=== PATIENT | male | born 1995 | race Caucasian/White ===

== ENCOUNTER 2017-05-20 18:12 | Emergency (ER) | payer OTHER ==
[2017-05-20 18:12] VITALS: BP 132/66
--- NOTE | 2017-05-20 18:39 | PHYS DOC ---
Past History Past Medical History: Other Past Surgical History: Appendectomy Alcohol Use: None Drug Use: None Adult General Chief Complaint Chief Complaint: SHOULDER INJURY HPI HPI Patient is a 22 year old M who presents with numbness and tingling to the left arm after throwing heavy bags of material at work. 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 Patient states the numbness and tingling is decreasing since stopping the repetitive motion. Patient denies any previous trauma to the left shoulder. Patient denies any weakness to the hand. Patient states that when he raises his arm appears of popping in his shoulder. Patient denies any neck pain. Patient denies any chest pain or shortness of breath. Patient has no cardiac history. Patient has no other symptoms. Review of Systems Review of Systems GEN: Denies fevers, chills, sweats HEENT: Denies blurred vision, sore throat CV: Denies chest pain RESP: Denies shortness of air, cough GI: Denies n/v/d NEURO: Denies confusion, dizziness MSK: Left shoulder pain with numbness and tingling down the left arm Allergies Allergies Allergies Coded Allergies Type Severity Reaction Last Updated Verified No Known Drug Allergies 07/11/14 No Physical Exam Physical Exam GEN.: No apparent distress. Alert and oriented. HEENT: Head is normocephalic, atraumatic NECK: Supple, with axial compression of the neck and the head turned to the left does not reproduce the numbness and tingling down the left arm LUNGS: CTAB. HEART: RRR, S1, S2 present. Peripheral pulses intact ABDOMEN: Soft, nontender. Positive bowel sounds. EXTREMITIES: Without any cyanosis. Crepitus in the left shoulder with range of motion, decreased sensation to the left upper extremity just to the elbow which patient states is improving, +2 radial pulse and capillary refill less than 2 seconds on the left NEUROLOGIC: Normal speech, normal tone PSYCHIATRIC: Normal affect, normal mood. SKIN: No ulcerations EKG EKG [] Radiology/Procedures Radiology/Procedures X-ray left shoulder no obvious fracture [] Course & Med Decision Making Course & Med Decision Making Pertinent Labs and Imaging studies reviewed. (See chart for details) ED course: Patient was seen and examined in the emergency room upon arrival x-ray of the left shoulder was ordered 1846: Explained x-ray results with the patient and plan to discharge him home with Jena MDM: After reviewing the chart, CC/HPI/PMH, physical exam, [radiological results], I do not believe the patient sustained a significant traumatic injury to the left shoulder warranting further workup and/or admission at this time. I believe the patient has some vertical apathy secondary to overuse of the left shoulder at work. Patient is stable for discharge. Patient states that symptoms and the paresthesias of the left upper extremity are getting better. Additional verbal discharge instructions were provided to the patient and that if symptoms get worse or any new symptoms arise that are worrisome to the patient he is to return to the emergency room immediately [] Dragon Disclaimer Dragon Disclaimer This chart was dictated in whole or in part using Voice Recognition software in a busy, high-work load, and often noisy Emergency Department environment. It may contain unintended and wholly unrecognized errors or omissions. Departure Departure: Impression: Primary Impression: Left shoulder pain Additional Impression: Radiculopathy affecting upper extremity Condition: IMPROVED Referrals: RIVER CHRISTENSEN MD (PCP) Patient Instructions: Shoulder Pain, [id number] Additional Instructions: Please follow up with her family doctor next one to 2 days Scripts Ibuprofen (IBUPROFEN) 800 Mg Tablet 1 TAB PO TID, #30 TAB Prov: MIRZA CAUSEY DO 05/20/17 Problem Qualifiers Primary Impression: Left shoulder pain Chronicity: acute Qualified Codes: M25.512 - Pain in left shoulder MIRZA CAUSEY DO May 20, 2017 18:39
[2017-05-20] MEDS ORDERED: IBUP800T19 PO (18:50)
--- NOTE | 2017-05-21 08:15 | RAD ---
Three-view left shoulder study History: Left shoulder pain that started today. No known trauma. Findings: No acute fracture or dislocation or osteolytic process is seen. No AC joint separation is seen. IMPRESSION: No acute fracture.
== END 2017-05-20 18:55 | disposition home or self-care (01) ==
LOC: ER 18:12
DX: M54.10 Radiculopathy, site unspecified (principal); M25.512 Pain in left shoulder
CPT/HCPCS: 73030; 99284

== ENCOUNTER → 2020-01-12 | Outpatient (CLI) | payer OTHER ==
[~2020-01-12] MED LIST: IBUP800T19 PO
--- NOTE | 2020-01-12 11:50 | RAD ---
Chest, PA and Lateral: Technique: PA and lateral views of the chest were obtained. History: Chest pain. Comparison: 09/12/2009. Findings: The heart and pulmonary vasculature appear within normal limits. The lungs are clear. The pleural margins are clear. Impression: No acute chest process is seen. Electronically signed by: Marino Roberts MD (01/12/2020 11:48 AM) [id number]
== END | disposition home or self-care (01) ==
LOC: DXRAD 11:18
PROVIDERS: ATTEND Physician Assistant
DX: R07.9 Chest pain, unspecified (principal)
CPT/HCPCS: 71046

== ENCOUNTER → 2021-05-05 | Outpatient (CLI) | payer OTHER ==
--- NOTE | 2021-05-05 11:07 | RAD ---
EXAM: Lumbar spine, 3 views. HISTORY: Radiculopathy. COMPARISON: None. FINDINGS: 3 views of the lumbar spine are obtained. There is no listhesis. The vertebral ly are nor mal in height and the disc spaces are preserved. IMPRESSION: No acute osseous finding. Electronically signed by: Irma Wilson MD (05/05/2021 11:04 AM) [id number]
== END ==
LOC: RAD 10:47
PROVIDERS: ATTEND Nurse Practitioner Family
DX: M54.5 Low back pain (principal)
CPT/HCPCS: 72100

== ENCOUNTER 2021-10-07 18:45 | Emergency (ER) | payer OTHER | END 2021-10-07 19:30 | disposition left against medical advice (07) | LOC: ER 18:45 | DX: H57.89 Other specified disorders of eye and adnexa (principal); Z53.21 Procedure and treatment not carried out due to patient leaving prior to being seen by health care provider ==